=== PATIENT | male | born 1935 | race Caucasian/White ===

== ENCOUNTER → 2018-04-05 11:52 | Outpatient (CLI) | payer MEDICARE, SELFPAY ==
--- NOTE | 2018-04-05 | DI.CT.S_ITS ---
PROCEDURE: CT CHEST WO CON INDICATIONS: HEMOPTYSIS TECHNIQUE: Noncontrast 5 mm thick sections acquired from the pulmonary apices to the posterior costophrenic angles. 7 mm thick coronal and sagittal MIP reformats were then acquired. For radiation dose reduction, the following was used: automated exposure control, adjustment of mA and/or kV according to patient size. COMPARISON: [facility], CT, THORAX WITHOUT CONTRAST, 06/25/2017, 10:54. FINDINGS: Image quality: Excellent. Lungs and pleura: There is biapical scarring. Advanced centrilobular emphysema is seen. A large os disease involving posterior aspect of right lower lobe is again seen and unchanged. There is interstitial pulmonary fibrosis. Scarring/atelectasis in bilateral lung ramirez are again seen and are unchanged. Calcified granuloma is again noted in lateral aspect of left upper lobe. No discrete soft tissue density nodule mass is seen. No pleural effusions or pneumothorax. Central and peripheral airways are patent and normal in caliber. Mediastinum: Heart size is enlarged. No pericardial effusion. Borderline enlarged right paratracheal lymph node is seen. This is unchanged from prior study. Thoracic aorta is normal in size. Enlarged pulmonary artery is again seen suggestive of pulmonary hypertension. Esophagus is normal in caliber. There is a small hiatal hernia. Bones and chest wall: No suspicious bony lesions. No vertebral body compression fractures. No axillary or supraclavicular adenopathy by size criteria. Thyroid gland is within normal limits.. Abdomen: Previously described 1 cm hypodensity in left hepatic lobe is unchanged in size and appearance. IMPRESSION: 1. Severe centrilobular emphysema. Extensive bullous disease with chronic interstitial changes and pulmonary fibrosis unchanged from previous study. 2. Enlarged central pulmonary arteries, suggestive of pulmonary hypertension. 3. Nonspecific borderline enlarged mediastinal lymph node. 4. Stable subtle 1 cm hypodense area in left hepatic lobe and may represent benign process. Dictated by: Abhijeet Romero M.D. on 04/05/2018 at 14:45 Approved by: Abhijeet Romero M.D. on 04/05/2018 at 14:50
== END ==
PROVIDERS: Family Provider Internal Medicine; PCP Internal Medicine; Visit Provider Internal Medicine
DX: J43.2 Centrilobular emphysema (principal); R04.2 Hemoptysis
CPT/HCPCS: 71250

== ENCOUNTER → 2018-04-27 12:10 | Outpatient (CLI) | payer MEDICARE, SELFPAY ==
--- NOTE | 2018-04-27 | DI.ECHO.S_ITS ---
[place] [facility]---------+ [facility] +---------+ : : [address] [place] : : : : [id number] : : : : Phone: [phone]+ Echocardiogram Report + + :Name: RAMON PRABHAKAR Study Date: 04/27/2018 Height: 74 in : :[facility] Weight: 185 lb : : Gender: Male BSA: 2.1 m2 : :: 1935 Age: 82 yrs BP: 134/70 mmHg: :Reason For Study: COPD : :Ordering Physician: Victor M : :Rodolfo Performed By: Cynthia Hatfield : :Referring: PAIGE SILVA : + + Interpretation Summary The ejection fraction is estimated to be 60-65%. The right ventricle is mildly dilated. Right ventricular systolic function is mildly reduced. The left atrium is moderately dilated. There is mild mitral regurgitation. Compared to the prior echo study, there has been a decrease in the severity of mitral regurgitation. The aortic valve is moderately calcified. The calculated aortic valve area is 1.2 cm2. There is mild aortic regurgitation. There is trace tricuspid regurgitation. The right ventricular systolic pressure is estimated to be at least 56 mmHg based on an estimated right atrial pressure of 8 mm Hg. Compared to the prior echo exam, there has been an increase in the severity of pulmonary hypertension. Procedure: A two-dimensional transthoracic echocardiogram with color flow and Doppler was performed. The study quality was technically good. Comparison is made with the echocardiogram of 05-22-16. The heart rate ranged between 50- 61 bpm during the study. Left Ventricle: The left ventricle is normal in size, wall thickness, and systolic function without any focal wall motion abnormalities. The ejection fraction is estimated to be 60-65%. Left ventricular wall motion is normal. Diastolic parameters suggest a pseudonormalization pattern, consistent with probable elevated filling pressures. Right Ventricle: The right ventricle is mildly dilated. Right ventricular systolic function is mildly reduced. Atria: The left atrium is moderately dilated. Right atrial size is normal. The interatrial septum is intact with no evidence for an atrial septal defect. Mitral Valve: The mitral valve is grossly normal. There is mild mitral regurgitation. Compared to the prior echo study, there has been a decrease in the severity of mitral regurgitation. Aortic Valve: The aortic valve is trileaflet. Leaflet mobility is mild to moderately reduced. The aortic valve is moderately calcified. The calculated aortic valve area is 1.2 cm2. The peak aortic velocity is 2.5 m/sec. The peak aortic velocity on the previous exam was 1.9 m/sec. The aortic valve mean gradient is 11 mmHg. Severity ratio is 0.37. There is mild aortic regurgitation. Compared to the prior echo study, there has been a decrease in the severity of aortic regurgitation. Tricuspid Valve: The tricuspid valve is normal in structure and function. There is trace tricuspid regurgitation. The right ventricular systolic pressure is estimated to be at least 56 mmHg based on an estimated right atrial pressure of 8 mm Hg. Compared to the prior echo exam, there has been an increase in the severity of pulmonary hypertension. Pulmonic Valve: The pulmonic valve is not well seen, but is grossly normal. There is mild pulmonic regurgitation. Great Vessels: The aortic root is normal size. The ascending aorta is at the upper limits of normal in size. The IVC is of normal diameter and collapses less than 50% with a sniff. This suggests a right atrial pressure of 8 mm Hg. Pericardium/ Pleura There is no pericardial effusion. There is no pleural effusion. MMode/2D Measurements & Calculations LVIDd: 5.9 cm LVOT diam: 2.1 cm LVIDs: 3.4 cm Ao root diam: 3.4 cm FS: 42.5 % Aortic Jxn: 2.8 cm EPSS: 0.36 cm asc Aorta Diam: 3.6 cm IVSd: 0.87 cm Ao Arch Diam (Prox Trans): 3.4 cm LVPWd: 0.94 cm LV stevens. diameter/BSA (cm/m^2): 2.8 LV sys. diameter/BSA (cm/m^2): 1.6 LA dimension: 5.0 cm RA long axis: 5.8 cm LA A2 area: 28.2 cm2 RA area: 19.5 cm2 LA A4 area: 25.9 cm2 RA vol: 55.9 ml LA length (vol): 6.3 cm RA : 26.6 ml/m2 LA vol: 98.1 ml IVC diam: 2.1 cm LA vol index: 46.7 ml/m2 RVDd major: 6.2 cm RVD1 (basal): 5.0 cm RVD2 (mid): 4.0 cm Doppler Measurements & Calculations Ao V2 max: 249.9 cm/sec LVOT Max Tomás: 87.5 cm/sec Ao V2 mean: 147.7 cm/sec LV V1 max P.1 mmHg Ao max P.0 mmHg LV V1 VTI: 23.3 cm Ao mean P.9 mmHg SHANIA(I,D): 1.3 cm2 Ao V2 VTI: 63.9 cm SHANIA(V,D): 1.2 cm2 sev ratio: 0.37 SHANIA indexed to BSA (cm^2/m^2): 0.61 AI P1/2t: 604.2 msec AI dec slope: 201.7 cm/sec2 MV E max tomás: 99.7 cm/sec TR max tomás: 345.8 cm/sec MV A max tomás: 89.9 cm/sec TR max P.8 mmHg MV E/A: 1.1 PA V2 max: 97.1 cm/sec Med Peak E' Tomás: 5.8 cm/sec PA V2 mean: 58.6 cm/sec E/E' med: 17.2 PA mean P.7 mmHg Lat Peak E' Tomás: 7.1 cm/sec PA Accel Time: 0.15 sec E/E' lat: 14.1 E/e' average: 15.7 MV dec time: 0.26 sec MV P1/2t: 73.4 msec MV P1/2t max tomás: 99.3 cm/sec MVA(P1/2t): 3.0 cm2 Reading Physician:02:57 PM
== END ==
PROVIDERS: Family Provider Internal Medicine Critical Care Medicine; PCP Nurse Practitioner Family; Visit Provider Internal Medicine
DX: I08.0 Rheumatic disorders of both mitral and aortic valves (principal); J44.9 Chronic obstructive pulmonary disease, unspecified
CPT/HCPCS: 93306

== ENCOUNTER → 2018-05-06 10:54 | Outpatient (CLI) | payer MEDICARE, SELFPAY ==
--- NOTE | 2018-05-07 16:31 | PM.PFT.1 ---
Pulmonary Function Test Referral & Results Date Patient Seen: 05/06/18 Requesting provider: Rod Brown Indication: COPD Results: The spirometry demonstrates an FVC of 3.21 L which is 69% of predicted. The FEV1 was measured at 2.15 L which is 65% of predicted. The FEV1/FVC ratio was 67 which is 94% of predicted. No bronchodilator was administered No lung volumes were performed The diffusing capacity was measured at ER 0.45 which is 22% of predicted. No hemoglobin value was provided, so no correction for potential anemia could be made, if appropriate. The maximum voluntary ventilation was normal Interpretation: This study demonstrates moderate obstructive lung disease based on reduction FEV1. There is severe reduction in diffusing capacity (unless patient is anemic) to the point where patient is likely hypoxic at times on room air Compared to PFTs performed in June 2017, current study is essentially unchanged Clinical correlation suggested
== END ==
PROVIDERS: Family Provider Internal Medicine Critical Care Medicine; PCP Internal Medicine; Visit Provider Internal Medicine
DX: J44.9 Chronic obstructive pulmonary disease, unspecified (principal)
CPT/HCPCS: 94010; 94729

== ENCOUNTER 2018-12-03 23:51 | Emergency (ER) | payer MEDICARE, SELFPAY ==
[2018-12-03 23:55] VITALS: BP 127/65; PULSE 72; RESP 13; TEMP 36.6; O2SAT 94; BMI 23.7
--- NOTE | 2018-12-04 00:15 | ED_ITS ---
HPI - URI/Sore Throat General Chief Complaint: Upper Respiratory Symptoms Stated Complaint: Cough X1 Week Time Seen by Provider: 12/03/18 23:54 Source: patient Mode of arrival: EMS Limitations: no limitations History of Present Illness HPI Narrative: Patient is an 82-year-old male with a history of COPD and pulmonary fibrosis who is currently on oxygen at home. Is on 3 L during the day and 2 L at night. He is currently taking doxycycline prescribed by his primary provider for COPD exacerbation. He is also currently on 5 mg of prednisone on a daily basis. He stated that they did not increase this prednisone when they started the doxycycline. He is also on inhalers at home and does to DuoNeb 3 times a day. He stated that earlier this evening he was having coughing episodes that were hard to control. It was causing him to become short of breath. He also stated that during 1 of these coughing episodes he felt a a sharp pain in his left lower abdomen over site where he had a prior hernia repair. Since then he has had a bulge in this area and pain. Secondary to all of these constellation of symptoms he called 911 to bring him into the emergency department for evaluation. Related Data Home Medications Medication Instructions Recorded Confirmed amoxicillin-pot clavulanate 1 tab OR BID #0 05/22/16 [Augmentin] furosemide 20 mg OR Q DAY #0 05/22/16 potassium chloride [Klor-Con 8] 10 meq OR Q DAY #0 05/22/16 tamsulosin [Flomax] 0.8 mg OR HS #0 05/22/16 Previous Rx's Medication Instructions Recorded albuterol sulfate 3 ml INH Q4HP PRN #30 amp 05/26/16 prednisone 40 mg PO QDAY #20 tab 05/26/16 azithromycin [Zithromax] 250 mg PO SEE INSTRUCTIONS #6 tab 06/09/16 albuterol sulfate 2.5 mg INHALATION Q4-6H PRN #30 12/04/18 each prednisone 40 mg PO DAILY #20 tab 12/04/18 Review of Systems Constitutional Denies fever(s) and Denies headache(s) ENT Ears, Nose, Mouth, and Throat: Denies headache(s) Cardiovascular Denies chest pain and Reports dyspnea Respiratory Reports cough, Reports pain with cough, Reports dyspnea and Reports wheezing Gastrointestinal Gastrointestinal: Reports abdominal pain and Denies change in stool character Comments: Fall to left lower abdomen Musculoskeletal Denies abnormal gait Integumentary/Breasts Denies rash Neurologic Denies abnormal gait, Denies confusion and Denies headache(s) Psychiatric Denies confusion Hematologic/Lymphatic Denies easy bleeding and Denies easy bruising Allergic/Immunologic Reports wheezing [facility] Medical History COPD (chronic obstructive pulmonary disease) (Acute) Pulmonary fibrosis (Acute) Social History marital status: lives independently: Yes Social History marital status: lives independently: Yes Exam Initial Vital Signs Initial Vital Signs: Vital Signs Temperature 97.9 F 12/03/18 23:55 Pulse Rate 72 12/03/18 23:55 Respiratory Rate 13 12/03/18 23:55 Blood Pressure 127/65 12/03/18 23:55 Pulse Oximetry 94 12/03/18 23:55 Const General: cooperative, well groomed and No acute distress Orientation: alert, awake and oriented x3 HENMT Head: normal to inspection and normocephalic Resp Effort & Inspection: not labored and tachypneic Auscultation: wheezes Cardio Rate: regular rate Rhythm: regular rhythm GI Palpation: soft Other: Patient with a bulge in his left lower abdomen over the site of maximum pain. Skin Lesions: no lesions Rashes: no rashes Neuro General: alert, awake and oriented x3 Cognition: normal cognition Speech: speech normal Extrem General: normal to inspection and capillary refill normal Psych Appearance: grossly normal and well kempt Course Orders Ordered: Discontinued Medications Albuterol (Ventolin) 5 mg INH NOW ONE Stop: 12/04/18 00:16 Last Admin: 12/04/18 00:26 Dose: 5 mg Prednisone (Deltasone) 40 mg PO NOW ONE Stop: 12/04/18 01:11 Last Admin: 12/04/18 01:27 Dose: 40 mg Vital Signs - 8 hr 12/03/18 23:55 12/04/18 00:26 Temperature 97.9 F Pulse Rate 72 60 Respiratory Rate 13 18 Blood Pressure 127/65 Pulse Oximetry 94 95 MDM - URI/Sore Throat MDM Narrative Medical decision making narrative: Patient with wheezing upon arrival. He was given a nebulizer treatment which did seem to improve his symptoms somewhat however did not resolve the wheezing. Patient states that he felt better after this. Will hold on a chest x-ray because he is currently taking doxycycline for his COPD exacerbation. He is at his baseline oxygen requirement. We did discuss increasing his prednisone at home to help with the coughing and the wheezing. Patient does have what appears to be a abdominal hernia which was reduced fairly easily with just gentle pressure here in the ER. He did protrude again after coughing however again was reduced. Patient was given follow up instructions with General surgery to discuss further evaluation of his hernia. Will not make any changes to his antibiotics. Patient was given return precautions and follow-up instructions. He expressed understanding and agreement with plan. Discharge Plan Departure Patient Disposition: Home Clinical Impression: COPD exacerbation Abdominal hernia Qualifiers: Hernia type: unspecified Obstruction and gangrene presence: without obstruction or gangrene Recurrence: recurrent Qualified Code(s): K45.8 - Other specified abdominal hernia without obstruction or gangrene Instructions: Chronic Obstructive Pulmonary Disease, Abdominal Hernia Activity Restrictions/Additional Instructions: Continue all of your medications as directed. Take the prednisone like we discussed. Continue with the antibiotics. On Thursday contact the [place] [facility] group at . Return to the emergency department for any new or worsening symptoms. Prescriptions: New prednisone 20 mg tablet 40 mg PO DAILY Qty: 20 RF: 0 albuterol sulfate 2.5 mg/0.5 mL solution for nebulization 2.5 mg INHALATION Q4-6H PRN (Reason: shortness of breath or wheezing) Qty: 30 RF: 0 No Action tamsulosin [Flomax] 0.4 MG capsule,extended release 24hr 0.8 mg OR HS Qty: 0 RF: 0 potassium chloride [Klor-Con 8] 8 MEQ tablet extended release 10 meq OR Q DAY Qty: 0 RF: 0 furosemide 20 MG tablet 20 mg OR Q DAY Qty: 0 RF: 0 amoxicillin-pot clavulanate [Augmentin] 875 MG/125 MG tablet 1 tab OR BID Qty: 0 RF: 0 albuterol sulfate 2.5 MG/3 ML solution for nebulization 3 ml INH Q4HP PRNQty: 30 RF: 1 prednisone 10 MG tablet 40 mg PO QDAY Qty: 20 RF: 0 azithromycin [Zithromax] 250 MG tablet 250 mg PO SEE INSTRUCTIONS Qty: 6 RF: 0 Referrals: Victor M Reynolds MD [Primary Care Provider] -
[2018-12-04 00:26] VITALS: PULSE 60; RESP 18; O2SAT 95
[2018-12-04] MEDS: ALBUTEROL 2.5 MG/3 ML NEB (ADULT) 5 MG INH (00:26)
[2018-12-04] MEDS: predniSONE 20 MG TABLET 40 MG PO (01:27)
[2018-12-04 08:42] VITALS: BP 116/59; PULSE 85; RESP 20; O2SAT 94
== END 2018-12-04 08:43 | disposition home or self-care (01) ==
PROVIDERS: Emergency Provider Emergency Medicine; Family Provider Internal Medicine Critical Care Medicine; PCP Internal Medicine
DX: J44.1 Chronic obstructive pulmonary disease with (acute) exacerbation (principal); K45.8 Other specified abdominal hernia without obstruction or gangrene
CPT/HCPCS: 94640; 99282; 99283; J7613

== ENCOUNTER 2018-12-10 16:11 | Emergency (ER) | payer MEDICARE, SELFPAY ==
[2018-12-10 16:19] VITALS: BP 126/59; PULSE 72; RESP 23; TEMP 36.6; O2SAT 98
--- NOTE | 2018-12-10 16:21 | DI.US.S_ITS ---
PROCEDURE: US PERIPH VENOUS UP EXTREM LT INDICATIONS: PAIN, SWELLING LEFT ARM TECHNIQUE: Real-time imaging, as well as color and pulse Doppler interrogation, was performed of the left upper extremity deep veins from the inferior neck to the antecubital fossa. COMPARISON: None. FINDINGS: The internal jugular vein, visualized portions of the subclavian vein, axillary, and brachial veins are free of intraluminal thrombus. Where physically possible, the veins are normally compressible. Color and pulse Doppler demonstrate normal intraluminal flow, with expected phasicity and pulsatility. Additional scanning of the cephalic and basilic veins of the superficial system demonstrate normal compressibility, without thrombus. There is enlargement of a superficial vein in the left hand and forearm, consistent with superficial thrombophlebitis. IMPRESSION: 1. No DVT in the left upper extremity. 2. Superficial thrombophlebitis of the left hand and forearm. Dictated by: Genesis Aldrich M.D. on 12/10/2018 at 18:09 Approved by: Genesis Aldrich M.D. on 12/10/2018 at 18:11
--- NOTE | 2018-12-10 16:24 | ED.EXTPRO ---
HPI - Extremity Problem <PETER Charles - Last Filed: 12/10/18 18:47> General Chief complaint: Extremity Problem,Nontraumatic Stated complaint: STATES VEIN LEFT FORARMIS SWELLING Time Seen by Provider: 12/10/18 16:13 Source: patient and family Mode of arrival: ambulatory Limitations: no limitations History of Present Illness HPI Narrative: The patient is an 82-year-old male nonsmoker presents with his for chief complaint of left forearm pain. He states this facility recently and had an IV in, and now complains of redness and swelling extending from the IV site up to his arm. He states that the pain feels hard. He denies any abnormal chest pain, abnormal shortness of breath nausea vomiting diarrhea or fever. He has not taken anything or applied anything to it. He is not sure what medications he had in his IV other than fluids. Patient states he has coughing still since his last visit. States he has a PCP appointment tomorrow Related Data Home Medications Medication Instructions Recorded Confirmed amoxicillin-pot clavulanate 1 tab OR BID #0 05/22/16 [Augmentin] furosemide 20 mg OR Q DAY #0 05/22/16 potassium chloride [Klor-Con 8] 10 meq OR Q DAY #0 05/22/16 tamsulosin [Flomax] 0.8 mg OR HS #0 05/22/16 Previous Rx's Medication Instructions Recorded albuterol sulfate 3 ml INH Q4HP PRN #30 amp 05/26/16 prednisone 40 mg PO QDAY #20 tab 05/26/16 azithromycin [Zithromax] 250 mg PO SEE INSTRUCTIONS #6 tab 06/09/16 albuterol sulfate 2.5 mg INHALATION Q4-6H PRN #30 12/04/18 each prednisone 40 mg PO DAILY #20 tab 12/04/18 Review of Systems <PETER Charles - Last Filed: 12/10/18 18:47> Review of Systems GENERAL: Denies chills, fatigue, malaise, fever, sweats. HEENT: Denies sinus pain, ear pain, sore throat, difficulty swallowing, dizziness. RESPIRATORY: See HPI CARDIOVASCULAR: Denies chest pain, palpitations, orthopnea, edema, GASTROINTESTINAL: Denies nausea, vomiting, abdominal pain, diarrhea, constipation, melena. : Denies dysuria, frequency, incontinence, hematuria, urinary retention. MUSCULOSKELETAL: denies weakness, joint pain, or bony pain SKIN: See HPI NEUROLOGIC: Denies weakness, headache, numbness, change in speech, confusion, seizures, incoordination. PSYCHIATRIC: No concerning psychosocial issues. 12 point review of systems is negative except for those stated above PFSH <PETER Charles - Last Filed: 12/10/18 18:47> Medical History COPD (chronic obstructive pulmonary disease) (Acute) Pulmonary fibrosis (Acute) Social History marital status: lives independently: Yes Smoking Status: Never smoker Social History marital status: lives independently: Yes Smoking Status: Never smoker Exam <PETER Charles - Last Filed: 12/10/18 18:47> Narrative Exam Narrative: GENERAL: Chronically ill-appearing male on home O2 HEAD: Atraumatic. Normocephalic. No temporal or scalp tenderness. EYES: Pupils equal round and reactive. Extraocular motions intact. No scleral icterus. No injection or drainage. ENT: Nose without bleeding, purulent drainage or septal hematoma. Throat without erythema, tonsillar hypertrophy or exudate. Uvula midline. Airway patent. NECK: Trachea midline. No JVD or lymphadenopathy. Supple, nontender, no meningeal signs. CARDIOVASCULAR: Regular rate and rhythm RESPIRATORY: Coarse bilaterally. no accessory muscle use. No stridor. Cough on exam on occasion. EXTREMITIES: Positive radial pulse left hand. Left arm is soft to palpation. BACK: Nontender without deformity or crepitance. No flank tenderness. NEURO: AOx3. SKIN: Noted to have single, swollen tender superficial vein to left hand and longterm up forearm Initial Vital Signs Initial Vital Signs: Vital Signs Temperature 97.9 F 12/10/18 16:19 Pulse Rate 72 12/10/18 16:19 Respiratory Rate 23 12/10/18 16:19 Blood Pressure 126/59 L 12/10/18 16:19 Pulse Oximetry 98 12/10/18 16:19 <Kiran Villareal DO - Last Filed: 12/11/18 08:17> Initial Vital Signs Initial Vital Signs: Vital Signs Temperature 97.9 F 12/10/18 16:19 Pulse Rate 72 12/10/18 16:19 Respiratory Rate 23 12/10/18 16:19 Blood Pressure 126/59 L 12/10/18 16:19 Pulse Oximetry 98 12/10/18 16:19 Course <PETER Charles - Last Filed: 12/10/18 18:47> Orders Ordered: ED Orders 12/10/18 16:21 US periph venous up extrem lt Stat Vital Signs - 8 hr 12/10/18 16:19 12/10/18 16:53 Temperature 97.9 F Pulse Rate 72 54 L Respiratory Rate 23 17 Blood Pressure 126/59 L Pulse Oximetry 98 98 <Kiran Villareal DO - Last Filed: 12/11/18 08:17> Orders Ordered: ED Orders 12/10/18 16:21 US periph venous up extrem lt Stat Vital Signs - 8 hr 12/10/18 16:19 12/10/18 16:53 Temperature 97.9 F Pulse Rate 72 54 L Respiratory Rate 23 17 Blood Pressure 126/59 L Pulse Oximetry 98 98 MDM - Extremity (Nontraumatic) <PETER Charles - Last Filed: 12/10/18 18:47> Imaging Data Venous US: Radiologist's impression: [place] [address] Ultrasound Report Signed Patient: Lon HathawayMR#: [id number] : 6Acct:[id number] Age/Sex: 82 / MDate of Service: 12/10/18 Loc: ED Accession Number: [id number] Procedure: US periph venous up extrem lt Ordering Provider: Tonja Suárez PROCEDURE: US PERIPH VENOUS UP EXTREM LT INDICATIONS: PAIN, SWELLING LEFT ARM TECHNIQUE: Real-time imaging, as well as color and pulse Doppler interrogation, was performed of the left upper extremity deep veins from the inferior neck to the antecubital fossa. COMPARISON: None. FINDINGS: The internal jugular vein, visualized portions of the subclavian vein, axillary, and brachial veins are free of intraluminal thrombus. Where physically possible, the veins are normally compressible. Color and pulse Doppler demonstrate normal intraluminal flow, with expected phasicity and pulsatility. Additional scanning of the cephalic and basilic veins of the superficial system demonstrate normal compressibility, without thrombus. There is enlargement of a superficial vein in the left hand and forearm, consistent with superficial thrombophlebitis. IMPRESSION: 1. No DVT in the left upper extremity. 2. Superficial thrombophlebitis of the left hand and forearm. Dictated by: Genesis Aldrich M.D. on 12/10/2018 at 18:09 Approved by: Genesis Aldrich M.D. on 12/10/2018 at 18:11 [facility] Narrative Medical decision making narrative: The patient is an 82-year-old male who presents with chief complaint of a red swollen past fall after an IV was removed last week. Ultrasound shows a superficial thrombophlebitis. No DVT. He is neurovascularly intact. Discussed at length use of warm packs and [id number] pain medications as needed and able. Encouraged follow-up with primary care provider. Patient has follow-up scheduled tomorrow anyway. Discussed coming back to the emergency department for any acute concerns such as chest pain, shortness of breath etc. No questions or concerns upon discharge. Discharge Plan Departure Patient Disposition: Home Clinical Impression: Superficial thrombophlebitis Qualifiers: Superficial thrombophlebitis-Involved body area: upper extremity Laterality: left Qualified Code(s): I80.8 - Phlebitis and thrombophlebitis of other sites Discharge Date/Time: 12/10/18 19:07 Interventions: ED Discharge Assessment Last Done: 12/10/18 19:06 Instructions: DI for Superficial Thrombophlebitis Activity Restrictions/Additional Instructions: Your ultrasound came back negative for a deep clot. However it is concerning for a superficial clot. This is usually treated with hot packs and qjxa-rje-roqpyjb pain medications.. Please follow up with primary care provider tomorrow as scheduled. Please come back to emergency department for any acute concerns such as chest pain, shortness of breath fever etc Prescriptions: No Action tamsulosin [Flomax] 0.4 MG capsule,extended release 24hr 0.8 mg OR HS Qty: 0 RF: 0 potassium chloride [Klor-Con 8] 8 MEQ tablet extended release 10 meq OR Q DAY Qty: 0 RF: 0 furosemide 20 MG tablet 20 mg OR Q DAY Qty: 0 RF: 0 amoxicillin-pot clavulanate [Augmentin] 875 MG/125 MG tablet 1 tab OR BID Qty: 0 RF: 0 albuterol sulfate 2.5 MG/3 ML solution for nebulization 3 ml INH Q4HP PRNQty: 30 RF: 1 prednisone 10 MG tablet 40 mg PO QDAY Qty: 20 RF: 0 azithromycin [Zithromax] 250 MG tablet 250 mg PO SEE INSTRUCTIONS Qty: 6 RF: 0 prednisone 20 mg tablet 40 mg PO DAILY Qty: 20 RF: 0 albuterol sulfate 2.5 mg/0.5 mL solution for nebulization 2.5 mg INHALATION Q4-6H PRN (Reason: shortness of breath or wheezing) Qty: 30 RF: 0 Referrals: Victor M Reynolds MD [Primary Care Provider] - <Kiran Villareal DO - Last Filed: 12/11/18 08:17> Cosign ED Attending Jluis Attestation: I was immediately available in the department for consultation. Documentation has been reviewed. I agree with assessment and plan.
[2018-12-10 16:53] VITALS: PULSE 54; RESP 17; O2SAT 98
--- NOTE | 2018-12-10 16:54 | PC.NURSE ---
Patient normally on 3L NC O2 at home.
--- NOTE | 2018-12-10 16:59 | PC.NURSE ---
Patient has swollen, red, tender superficial veins to left hand and forearm after IV last week.
--- NOTE | 2018-12-10 17:00 | PC.NURSE ---
History or COPD and CHF.
[2018-12-10 18:46] VITALS: BP 138/69; PULSE 61; RESP 16; O2SAT 95
== END 2018-12-10 19:07 | disposition home or self-care (01) ==
PROVIDERS: Emergency Provider Nurse Practitioner Family; Family Provider Internal Medicine Critical Care Medicine; PCP Internal Medicine
DX: I80.8 Phlebitis and thrombophlebitis of other sites (principal)
CPT/HCPCS: 36591; 93971; 99282; 99283

== ENCOUNTER → 2019-10-25 11:09 | Outpatient (CLI) | payer MEDICARE, SELFPAY ==
--- NOTE | 2019-10-25 | DI.CT.S_ITS ---
PROCEDURE: CT CHEST WO CON INDICATIONS: Chronic obstructive pulmonary disease, unspecified TECHNIQUE: Noncontrast 5 mm thick sections acquired from the pulmonary apices to the posterior costophrenic angles. 1 mm lung window, 5 mm thick coronal and sagittal and 7 mm axial MIP reformats were then acquired. For radiation dose reduction, the following was used: automated exposure control, adjustment of mA and/or kV according to patient size. COMPARISON: [facility], CT, CT CHEST WO CON, 04/05/2018, 12:00. FINDINGS: Image quality: Excellent. Lungs and pleura: There are severe paraseptal and moderate centrilobular emphysematous changes redemonstrated. These include multiple bilateral bulla measuring up to 12.2 x 7.7 x 14.1 cm in the right lung base exteriorly. This appears slightly increased compared to the prior study on which it measured approximately 12.2 x 7.2 x 13.1 cm. Bilateral subpleural reticular opacities, honeycombing, and traction bronchiectasis also demonstrated with a basilar predominance. The findings are consistent with a UIP pattern of chronic interstitial lung disease and appear slightly increased compared to the prior study. No acute consolidation or new suspicious masses lesions. There is a focus of calcification in the left upper lobe consistent with old granulomatous disease. No pleural effusions or pneumothorax. Central and peripheral airways are patent and normal in caliber. Mediastinum: Heart size is normal. There is a minimal pericardial effusion. Coronary arteriovascular calcifications demonstrated. Enlargement of the pulmonary arteries redemonstrated, with the main pulmonary artery measuring up to 4.3 cm compatible with sequela of pulmonary arterial hypertension. The aorta is normal in caliber. No mediastinal adenopathy by size criteria. Esophagus is normal in caliber. There is a small hiatal hernia. Bones and chest wall: No suspicious bony lesions. No vertebral body compression fractures. No axillary or supraclavicular adenopathy by size criteria. Abdomen: Visualized upper abdomen redemonstrates a small hypodensity in the left hepatic lobe measuring up to 1.1 cm which is too small to characterize but appears unchanged from prior study and represents a cyst. Small foci of calcifications are demonstrated within the liver and spleen consistent with sequela of old granulomatous disease. IMPRESSION: 1. Severe paraseptal and moderate centrilobular emphysematous changes redemonstrated, slightly increased from the prior study. 2. UIP pattern of chronic interstitial lung disease also slightly increased from the prior study. The differential of possible etiologies is broad and correlation is recommended with clinical history. 3. Enlargement of the pulmonary arteries redemonstrated compatible with sequelae of chronic pulmonary arterial hypertension. Dictated by: Masood Jerez M.D. on 10/25/2019 at 13:25 Approved by: Masood Jerez M.D. on 10/25/2019 at 13:35
== END ==
PROVIDERS: Family Provider Internal Medicine Critical Care Medicine; PCP Internal Medicine; Referring Provider Internal Medicine; Visit Provider Internal Medicine
DX: J44.9 Chronic obstructive pulmonary disease, unspecified (principal); J84.9 Interstitial pulmonary disease, unspecified; K44.9 Diaphragmatic hernia without obstruction or gangrene; I77.89 Other specified disorders of arteries and arterioles
CPT/HCPCS: 71250

== ENCOUNTER 2020-03-24 15:14 | Emergency (ER) | payer MEDICARE, SELFPAY ==
[2020-03-24] VITALS (17 sets, daily range): BP systolic 120–154; BP diastolic 58–81; PULSE 53–65; RESP 15; TEMP 36.4; O2SAT 81–94
--- NOTE | 2020-03-24 15:38 | DI.CT.S_ITS ---
PROCEDURE: CT CERVICAL SPINE WO CON INDICATIONS: glf hit head, neck pain TECHNIQUE: Noncontrast 3 mm thick sections acquired from the skull base to the T4 level. Sagittal and coronal reformats were then constructed. For radiation dose reduction, the following was used: automated exposure control, adjustment of mA and/or kV according to patient size. COMPARISON: [facility], CT, CT HEAD/BRAIN WO CON, 03/24/2020, 15:43. [facility], CT, THORAX WITHOUT CONTRAST, 11/08/2015, 14:08. FINDINGS: Image quality: Diagnostic, with note made of motion artifact. Bones: No fractures or dislocations. Visualized superior ribs are intact. Degenerative changes are seen, with moderate to severe disc space narrowing at C4-C5 and C5-C6. At least moderate disc space narrowing is seen at C6-C7. At least partially bridging anterior osteophytes are seen C3 through T1. Postop directed endplate osteophytes are seen, which are most prominent at C4-C5 and at C5-C6. Focal degenerative changes are also seen involving the C1-C2 interface anteriorly. Soft tissues: Prevertebral soft tissues are normal in thickness. No paravertebral hematomas. No apical pneumothoraces. Emphysematous changes are seen at the lung apices. Atherosclerotic calcification is noted. IMPRESSION: No acute fracture is seen. Degenerative changes are seen, which are worst at the C4-C5 and C5-C6 levels. Emphysema. Dictated by: Mariusz Rebolledo M.D. on 03/24/2020 at 15:11 Approved by: Mariusz Rebolledo M.D. on 03/24/2020 at 15:13
--- NOTE | 2020-03-24 15:38 | DI.CT.S_ITS ---
PROCEDURE: CT HEAD/BRAIN WO CON INDICATIONS: glf hit head TECHNIQUE: Noncontrast 4.5 mm thick angled axial sections acquired from the foramen magnum to the vertex, with coronal and sagittal reformats. For radiation dose reduction, the following was used: automated exposure control, adjustment of mA and/or kV according to patient size. COMPARISON: [facility], CT, CT CERVICAL SPINE WO CON, 03/24/2020, 15:43. [facility], CT, HEAD WITHOUT CONTRAST, 05/30/2013, 9:15. FINDINGS: Image quality: Excellent. CSF spaces: Basal cisterns are patent. No extra-axial fluid collections. The ventricles are symmetric in size and shape. Brain: No intracranial bleeds or masses. There is cerebral volume loss for age, with resultant ventricular and sulcal prominence. There are periventricular and deep white matter chronic small vessel ischemic changes. There is intracranial internal carotid artery atherosclerosis. Skull and face: Calvarium and visualized facial bones appear intact, without suspicious lesions. Sinuses: Visualized sinuses and mastoids are clear. IMPRESSION: No acute intracranial hemorrhage is seen. Relatively prominent brain parenchymal volume loss is again seen. Dictated by: Mariusz Rebolledo M.D. on 03/24/2020 at 15:10 Approved by: Mariusz Rebolledo M.D. on 03/24/2020 at 15:11
--- NOTE | 2020-03-24 15:38 | DI.RAD.S_ITS ---
PROCEDURE: XR ELBOW RT MIN 3V INDICATIONS: Ground level fall, pain, wound TECHNIQUE: 3 views of the elbow were acquired. COMPARISON: None. FINDINGS: Bones: Rotated exam which limits evaluation. No evidence of fracture. No fractures or dislocations. No suspicious bony lesions. Soft tissues: No elbow joint effusion. No suspicious soft tissue calcifications. IMPRESSION: No definite evidence of fracture. Limited exam due to poor positioning. Dictated by: Kilo Arroyo M.D. on 03/24/2020 at 16:10 Approved by: Kilo Arroyo M.D. on 03/24/2020 at 16:11
[2020-03-24 15:55] LABS: Add Manual Diff / Slide Review NO; Basophils Absolute Auto 100 /uL (0-100); Basophils Percent Auto 0.9 % (0-2); Eosinophils Absolute Auto 0 /uL (0-450); Eosinophils Percent Auto 0.6 % (2-4); Hematocrit 45.5 % (41-53); Hemoglobin 15.1 g/dL (13.5-17.5); Lymphocytes Absolute Auto 1000 /uL (1100-4500); Lymphocytes Percent Auto 13.2 % (25-40); Mean Corpuscular HGB Conc 33.1 % (30-36); Mean Corpuscular Hemoglobin 32.4 PG (26-34); Mean Corpuscular Volume 97.7 fL (80-100); Monocytes Absolute Auto 200 /uL (0-900); Monocytes Percent Auto 2.8 % (3-14); Neutrophils Absolute Auto 6200 /uL (1500-7000); Neutrophils Percent Auto 82.5 % (50-75); Platelet Count 260 X10^3/uL (150-400); Red Blood Cell Count 4.66 X10^6/uL (4.5-5.9); Red Cell Distribution Width 14.7 % (11.6-14.8); White Blood Cell Count 7.5 X10^3/uL (4.5-11.0)
[2020-03-24 16:11] LABS: PTT Partial Thromboplastin Tim 28 SECONDS (26.4-36.2)
[2020-03-24 16:12] LABS: Lactate (Lactic Acid) 3.3 mmol/L (0.7-2.1)
[2020-03-24 16:13] LABS: Alanine Aminotransferase 13 IU/L (<50); Albumin Globulin Ratio 1.3 (1.0-2.8); Alkaline Phosphatase 40 U/L (38-126); Aspartate Aminotransferase 31 IU/L (17-59); BUN Creatinine Ratio 22.8 (6-22); Bilirubin Total 0.4 mg/dL (0.2-1.3); Blood Urea Nitrogen 26 mg/dL (9-20); Calcium 9.2 mg/dL (8.4-10.2); Carbon Dioxide 23 mmol/L (22-32); Chloride 108 mmol/L (98-107); Estimated Glomerular Filt Rate > 60.0 mL/min (>60); Globulin 3.2 g/dL (1.7-4.1); Glucose 84 mg/dL (80-110); HEMOLYSIS 16 (0-50); Sodium 141 mmol/L (137-145); Total Protein 7.2 g/dL (6.3-8.2)
[2020-03-24 16:27] LABS: Creatine Kinase 266 U/L (55-170)
[2020-03-24 16:28] LABS: Procalcitonin < 0.05 ng/mL (<0.5)
[2020-03-24] MEDS: SODIUM CHLORIDE 0.9% 1,000 ML 1000 ML IV ×2 (16:28→17:47)
--- NOTE | 2020-03-24 16:31 | DI.RAD.S_ITS ---
PROCEDURE: XR CHEST 1V INDICATIONS: copd, shortness of breath TECHNIQUE: One view of the chest was acquired. COMPARISON: [facility], CT, CT CHEST WO CON, 10/25/2019, 11:09. [facility], CR, CHEST 1 VIEW, 05/22/2016, 11:36. [facility], CR, CHEST 2 VIEW, 09/04/2016, 14:11. FINDINGS: Surgical changes and devices: None. Lungs and pleura: The lungs are hyperexpanded. Diffuse interstitial prominence is seen. Blunting of the costophrenic angles can be seen. Mediastinum: Obscured. Bones and chest wall: Age-appropriate bony degenerative changes are seen. No suspicious bony lesions. Overlying soft tissues appear unremarkable. IMPRESSION: Diffuse interstitial prominence is seen. A small amount of pulmonary edema is suspected upon a baseline of underlying pulmonary fibrosis. Blunting of the costophrenic angles is seen, which is attributed to scarring, although differential diagnosis includes small pleural effusions. Dictated by: Mariusz Rebolledo M.D. on 03/24/2020 at 16:18 Approved by: Mariusz Rebolledo M.D. on 03/24/2020 at 16:19
[2020-03-24 16:41] LABS: NT-proBNP (BNP-Adult 18+) 405 pg/mL (<450); Troponin I < 0.012 ng/mL (0.01-0.034)
[2020-03-24 16:43] LABS: CKMB % Relative Index 0.9 % (1.5-5.0); Creatine Kinase MB 2.36 ng/mL (<2.37)
[2020-03-24] MEDS: TET,DIPH,PERTUSS(ACELL),VAC/PF 0.5 ML SYRINGE IM (17:04)
[2020-03-24 17:51] LABS: Reflexed Lactate in 2 Hours Y
[2020-03-24 18:33] LABS: Lactate 2HR (Lactic Acid Rflx) 2.3 mmol/L (0.7-2.1)
--- NOTE | 2020-03-24 19:11 | ED.FALL ---
HPI - Fall <Tonja Suárez HISTORY CARD CLERK-BC - Last Filed: 03/24/20 21:47> General Chief Complaint: Fall Stated Complaint: Fall, right arm skin tear Time Seen by Provider: 03/24/20 15:26 Source: patient and family Mode of arrival: Ambulatory Limitations: no limitations History of Present Illness HPI Narrative: The patient is an 84-year-old male nonsmoker with history of COPD and acute respiratory failure with hypoxia on home oxygen who presents with a chief complaint of a fall and injury to his right arm. He is oxygen dependent at home, using 2-3 L of nasal cannula oxygen at all times. Today he was ambulating and working in the garden, and he did not realize that his oxygen tank ran out. He states he does not know how long his oxygen tank was empty. He then feels very woozy and had a fall to the floor. He states that he has a skin tear to his right arm. He denies any pain. He admits to hitting his head, states that his neck pain is at baseline. He denies any chest pain or abnormal shortness of breath. He denies any fevers nausea vomiting or diarrhea. He denies any abdominal pain. His notes that he has been feeling ?a little off the past few days. He denies any dysuria urgency or frequency. After he fell, his heard him and found his oxygen take empty. Given that patient fell and hit his head over the age of 65, modified trauma activated upon arrival Related Data Home Medications Medication Instructions Recorded Confirmed amoxicillin-pot clavulanate 1 tab OR BID #0 05/22/16 [Augmentin] furosemide 20 mg OR Q DAY #0 05/22/16 potassium chloride [Klor-Con 8] 10 meq OR Q DAY #0 05/22/16 tamsulosin [Flomax] 0.8 mg OR HS #0 05/22/16 Previous Rx's Medication Instructions Recorded albuterol sulfate 3 ml INH Q4HP PRN #30 amp 05/26/16 prednisone 40 mg PO QDAY #20 tab 05/26/16 azithromycin [Zithromax] 250 mg PO SEE INSTRUCTIONS #6 tab 06/09/16 albuterol sulfate 2.5 mg INHALATION Q4-6H PRN #30 12/04/18 each prednisone 40 mg PO DAILY #20 tab 12/04/18 Allergies Allergy/AdvReac Type Severity Reaction Status Date / Time No Known Drug Allergies Allergy Verified 03/24/20 15:26 Review of Systems <PETER Charles - Last Filed: 03/24/20 21:47> Review of Systems Narrative: GENERAL: Denies chills, fatigue, malaise, fever, sweats. HEENT: Denies sinus pain, ear pain, sore throat, difficulty swallowing, dizziness. RESPIRATORY: See HPI CARDIOVASCULAR: Denies chest pain, palpitations, orthopnea, edema, GASTROINTESTINAL: Denies nausea, vomiting, abdominal pain, diarrhea, constipation, melena. : Denies dysuria, frequency, incontinence, hematuria, urinary retention. MUSCULOSKELETAL: denies weakness, joint pain, or bony pain SKIN: See HPI NEUROLOGIC: Denies weakness, headache, numbness, change in speech, confusion, seizures, incoordination. PSYCHIATRIC: No concerning psychosocial issues. 12 point review of systems is negative except for those stated above Patient History <PETER Charles - Last Filed: 03/24/20 21:47> Medical History (Updated 03/24/20 @ 20:40 by PETER Charles) COPD (chronic obstructive pulmonary disease) (Acute) Pulmonary fibrosis (Acute) Social History marital status: lives independently: Yes Smoking Status: Never smoker Smoking Status: Never smoker alcohol intake frequency: 3 or more drinks per day Substance Use Type: does not use Exam <PETER Charles - Last Filed: 03/24/20 21:47> Narrative Exam Narrative: GENERAL: Elderly male with oxygen in place and ready cheeks HEAD: Atraumatic. Normocephalic. No temporal or scalp tenderness. EYES: Pupils equal round and reactive. Extraocular motions intact. No scleral icterus. No injection or drainage. ENT: Nose without bleeding, purulent drainage or septal hematoma. Throat without erythema, tonsillar hypertrophy or exudate. Uvula midline. Airway patent. NECK: Trachea midline. No JVD or lymphadenopathy. Supple, nontender, no meningeal signs. CARDIOVASCULAR: Regular rate and rhythm RESPIRATORY: Coarse to auscultation. Breath sounds equal bilaterally. No wheezes, rales, or rhonchi. No increased respiratory effort. Speaking full sentences. Occasional cough on exam. GASTROINTESTINAL: Abdomen soft, non-tender, nondistended. No hepato-splenomegaly, or palpable masses. No guarding. EXTREMITIES: No clubbing, cyanosis, or edema. No joint tenderness, effusion, or edema noted. BACK: Nontender without deformity or crepitance. No flank tenderness. NEURO: AOx3. SKIN: 4 cm laceration noted to olecranon of right elbow. Initial Vital Signs Initial Vital Signs: Vital Signs Temperature 97.6 F 03/24/20 15:20 Pulse Rate 60 03/24/20 15:20 Respiratory Rate 15 03/24/20 15:20 Blood Pressure 120/58 L 03/24/20 15:20 Pulse Oximetry 90 L 03/24/20 15:20 <Rusty Samayoa MD - Last Filed: 03/25/20 02:01> Initial Vital Signs Initial Vital Signs: Vital Signs Temperature 97.6 F 03/24/20 15:20 Pulse Rate 60 03/24/20 15:20 Respiratory Rate 15 03/24/20 15:20 Blood Pressure 120/58 L 03/24/20 15:20 Pulse Oximetry 90 L 03/24/20 15:20 Procedures <PETER Charles - Last Filed: 03/24/20 21:47> Laceration Repair Laceration 1: Site: upper extremity Side (If applicable): right Size (cm): 4 Description: linear Depth: simple, single layer Local Anesthetic: lidocaine 1% and with bicarb Amount of anesthesia used (mL): 6 Pre-repair: wound explored, irrigated extensively and deep structures intact (Flushed with saline, cleansed with Hibiclens and iodine) Skin layer closed with: nylon Size (cm): 5-0 Number of sutures: 7 Technique: simple, interrupted Scores <PETER Charles - Last Filed: 03/24/20 21:47> GCS [place] coma scale eye opening: Spontaneous [place] coma scale verbal response: Orientated Faith coma scale motor response: Obey commands [place] coma scale total score: 15 NIH Stroke Scale Level of Conciousness: Alert, keenly responsive Ask month/age: Answers both questions correctly. Open/close eyes, close hand: Performs both tasks correctly Best gaze horizontal: Normal Visual ramirez: No visual loss Facial palsy: Normal symetrical movement Left arm drift: No drift for full 10 sec Right arm drift: No drift for full 10 sec Left leg drift: No drift for full 5 sec Right leg drift: No drift for full 5 sec Limb ataxia: Absent Sensory on face/arms/legs: Normal, no sensory loss Best language: No aphasia, normal Dysarthria: Normal Extinction or inattention: No abnormality Total NIH Stroke scale score: 0 Course <HERMANN Charles-BC - Last Filed: 03/24/20 21:47> Orders Ordered: ED Orders 03/24/20 19:50 Lactate (Lactic Acid) Stat 03/24/20 20:25 Arterial Blood Gas Stat Discontinued Medications Bacitracin (Bacitracin) 1 applic TOP NOW ONE Stop: 03/24/20 19:26 Last Admin: 03/24/20 19:41 Dose: 1 applic Documented by: ELADIO Diphtheria/Tetanus/Acell Pertussis (Adacel) 0.5 ml IM .ONCE ONE Stop: 03/24/20 15:39 Last Admin: 03/24/20 17:04 Dose: 0.5 ml Documented by: ELADIO Sodium Chloride (Normal Saline 0.9%) 1,000 mls @ 1,000 mls/hr IV BOLUS ONE Stop: 03/24/20 17:16 Last Infusion: 03/24/20 17:48 Dose: 0 mls/hr Documented by: Admin: 03/24/20 16:28 Dose: 1,000 mls/hr Documented by: TORI Sodium Chloride (Normal Saline 0.9%) 1,000 mls @ 1,000 mls/hr IV BOLUS ONE Stop: 03/24/20 18:20 Last Infusion: 03/24/20 19:41 Dose: 0 mls/hr Documented by: Admin: 03/24/20 17:47 Dose: 1,000 mls/hr Documented by: ELADIO Lidocaine/Sodium Bicarbonate (Buffered Lidocaine 10 Ml Syr) 10 ml INJ NOW ONE Stop: 03/24/20 18:00 Last Admin: 03/24/20 19:12 Dose: 5.5 ml Documented by: ELADIO Vital Signs Vital signs: Vital Signs - 8 hr 03/24/20 18:00 03/24/20 18:30 03/24/20 19:00 Pulse Rate 58 L 59 L 65 Blood Pressure 129/69 140/67 Pulse Oximetry 92 94 85 L 03/24/20 19:30 03/24/20 19:31 03/24/20 20:00 Pulse Rate 62 62 57 L Blood Pressure 154/70 H Pulse Oximetry 88 L 88 L 92 03/24/20 20:30 Pulse Rate 63 Blood Pressure 136/81 Pulse Oximetry 93 <Rusty Samayoa MD - Last Filed: 03/25/20 02:01> Orders Ordered: ED Orders 03/24/20 19:50 Lactate (Lactic Acid) Stat 03/24/20 20:25 Arterial Blood Gas Stat Discontinued Medications Bacitracin (Bacitracin) 1 applic TOP NOW ONE Stop: 03/24/20 19:26 Last Admin: 03/24/20 19:41 Dose: 1 applic Documented by: ELADIO Diphtheria/Tetanus/Acell Pertussis (Adacel) 0.5 ml IM .ONCE ONE Stop: 03/24/20 15:39 Last Admin: 03/24/20 17:04 Dose: 0.5 ml Documented by: ELADIO Sodium Chloride (Normal Saline 0.9%) 1,000 mls @ 1,000 mls/hr IV BOLUS ONE Stop: 03/24/20 17:16 Last Infusion: 03/24/20 17:48 Dose: 0 mls/hr Documented by: Admin: 03/24/20 16:28 Dose: 1,000 mls/hr Documented by: TORI Sodium Chloride (Normal Saline 0.9%) 1,000 mls @ 1,000 mls/hr IV BOLUS ONE Stop: 03/24/20 18:20 Last Infusion: 03/24/20 19:41 Dose: 0 mls/hr Documented by: Admin: 03/24/20 17:47 Dose: 1,000 mls/hr Documented by: ELADIO Lidocaine/Sodium Bicarbonate (Buffered Lidocaine 10 Ml Syr) 10 ml INJ NOW ONE Stop: 03/24/20 18:00 Last Admin: 03/24/20 19:12 Dose: 5.5 ml Documented by: ELADIO Vital Signs Vital signs: Vital Signs - 8 hr 03/24/20 18:00 03/24/20 18:30 03/24/20 19:00 Pulse Rate 58 L 59 L 65 Blood Pressure 129/69 140/67 Pulse Oximetry 92 94 85 L 03/24/20 19:30 03/24/20 19:31 03/24/20 20:00 Pulse Rate 62 62 57 L Blood Pressure 154/70 H Pulse Oximetry 88 L 88 L 92 03/24/20 20:30 Pulse Rate 63 Blood Pressure 136/81 Pulse Oximetry 93 MDM - Fall <Tonja Suárez, HISTORY CARD CLERK- - Last Filed: 03/24/20 21:47> Lab Data Attestation: I reviewed the patient's lab results. Result diagrams: 03/24/20 15:41 03/24/20 15:41 Labs: Lab Results 03/24/20 03/24/20 03/24/20 Range/Units 15:41 15:41 15:41 WBC 7.5 (4.5-11.0) X10^3/uL RBC 4.66 (4.5-5.9) X10^6/uL Hgb 15.1 (13.5-17.5) g/dL Hct 45.5 (41-53) % MCV 97.7 (80-100) fL MCH 32.4 (26-34) PG MCHC 33.1 (30-36) % RDW 14.7 (11.6-14.8) % Plt Count 260 (150-400) X10^3/uL Neut % (Auto) 82.5 H (50-75) % Lymph % (Auto) 13.2 L (25-40) % Morrow % (Auto) 2.8 L (3-14) % Eos % (Auto) 0.6 L (2-4) % Baso % (Auto) 0.9 (0-2) % Neut # (Auto) 6200 (5777-4368) /uL Lymph # (Auto) 1000 L (9918-7391) /uL Morrow # (Auto) 200 (0-900) /uL Eos # (Auto) 0 (0-450) /uL Baso # (Auto) 100 (0-100) /uL PT 11.0 (10.1-12.7) SECONDS INR 1.0 (0.9-1.3) APTT 28 (26.4-36.2) SECONDS ABG pH (7.35-7.45) ABG pCO2 (35-45) mmHg ABG pO2 (80-100) mmHg ABG HCO3 (22-26) mmol/L ABG Total CO2 (21-31) mmol/L ABG O2 Saturation (95-100) % ABG Base Excess (-2-2) mmol/L FiO2 Sodium (137-145) mmol/L Potassium (3.4-5.1) mmol/L Chloride (98-107) mmol/L Carbon Dioxide (22-32) mmol/L BUN (9-20) mg/dL Creatinine (0.66-1.25) mg/dL Estimated GFR (>60) mL/min BUN/Creatinine Ratio (6-22) Glucose (80-110) mg/dL Lactate (0.7-2.1) mmol/L Calcium (8.4-10.2) mg/dL Total Bilirubin (0.2-1.3) mg/dL AST (17-59) IU/L ALT (<50) IU/L Alkaline Phosphatase (38-126) U/L Total Creatine Kinase (55-170) U/L CK-MB (CK-2) (<2.37) ng/mL CK-MB (CK-2) Rel Index (1.5-5.0) % Troponin I (0.01-0.034) ng/mL NT-Pro-B Natriuret Pep (<450) pg/mL Total Protein (6.3-8.2) g/dL Albumin (3.5-5.0) g/dL Globulin (1.7-4.1) g/dL Albumin/Globulin Ratio (1.0-2.8) Procalcitonin < 0.05 (<0.5) ng/mL 03/24/20 03/24/20 03/24/20 Range/Units 15:41 15:41 15:47 WBC (4.5-11.0) X10^3/uL RBC (4.5-5.9) X10^6/uL Hgb (13.5-17.5) g/dL Hct (41-53) % MCV (80-100) fL MCH (26-34) PG MCHC (30-36) % RDW (11.6-14.8) % Plt Count (150-400) X10^3/uL Neut % (Auto) (50-75) % Lymph % (Auto) (25-40) % Morrow % (Auto) (3-14) % Eos % (Auto) (2-4) % Baso % (Auto) (0-2) % Neut # (Auto) (6476-9600) /uL Lymph # (Auto) (2418-8582) /uL Morrow # (Auto) (0-900) /uL Eos # (Auto) (0-450) /uL Baso # (Auto) (0-100) /uL PT (10.1-12.7) SECONDS INR (0.9-1.3) APTT (26.4-36.2) SECONDS ABG pH (7.35-7.45) ABG pCO2 (35-45) mmHg ABG pO2 (80-100) mmHg ABG HCO3 (22-26) mmol/L ABG Total CO2 (21-31) mmol/L ABG O2 Saturation (95-100) % ABG Base Excess (-2-2) mmol/L FiO2 Sodium 141 (137-145) mmol/L Potassium 5.0 (3.4-5.1) mmol/L Chloride 108 H (98-107) mmol/L Carbon Dioxide 23 (22-32) mmol/L BUN 26 H (9-20) mg/dL Creatinine 1.14 (0.66-1.25) mg/dL Estimated GFR > 60.0 (>60) mL/min BUN/Creatinine Ratio 22.8 H (6-22) Glucose 84 (80-110) mg/dL Lactate 3.3 H (0.7-2.1) mmol/L Calcium 9.2 (8.4-10.2) mg/dL Total Bilirubin 0.4 (0.2-1.3) mg/dL AST 31 (17-59) IU/L ALT 13 (<50) IU/L Alkaline Phosphatase 40 (38-126) U/L Total Creatine Kinase 266 H (55-170) U/L CK-MB (CK-2) 2.36 (<2.37) ng/mL CK-MB (CK-2) Rel Index 0.9 L (1.5-5.0) % Troponin I < 0.012 (0.01-0.034) ng/mL NT-Pro-B Natriuret Pep 405 (<450) pg/mL Total Protein 7.2 (6.3-8.2) g/dL Albumin 4.0 (3.5-5.0) g/dL Globulin 3.2 (1.7-4.1) g/dL Albumin/Globulin Ratio 1.3 (1.0-2.8) Procalcitonin (<0.5) ng/mL 03/24/20 03/24/20 03/24/20 Range/Units 18:17 19:50 20:25 WBC (4.5-11.0) X10^3/uL RBC (4.5-5.9) X10^6/uL Hgb (13.5-17.5) g/dL Hct (41-53) % MCV (80-100) fL MCH (26-34) PG MCHC (30-36) % RDW (11.6-14.8) % Plt Count (150-400) X10^3/uL Neut % (Auto) (50-75) % Lymph % (Auto) (25-40) % Morrow % (Auto) (3-14) % Eos % (Auto) (2-4) % Baso % (Auto) (0-2) % Neut # (Auto) (5225-0499) /uL Lymph # (Auto) (3245-7402) /uL Morrow # (Auto) (0-900) /uL Eos # (Auto) (0-450) /uL Baso # (Auto) (0-100) /uL PT (10.1-12.7) SECONDS INR (0.9-1.3) APTT (26.4-36.2) SECONDS ABG pH 7.35 (7.35-7.45) ABG pCO2 37.2 (35-45) mmHg ABG pO2 56 L (80-100) mmHg ABG HCO3 21 L (22-26) mmol/L ABG Total CO2 22 (21-31) mmol/L ABG O2 Saturation 88 L (95-100) % ABG Base Excess -5.0 L (-2-2) mmol/L FiO2 0.32 Sodium (137-145) mmol/L Potassium (3.4-5.1) mmol/L Chloride (98-107) mmol/L Carbon Dioxide (22-32) mmol/L BUN (9-20) mg/dL Creatinine (0.66-1.25) mg/dL Estimated GFR (>60) mL/min BUN/Creatinine Ratio (6-22) Glucose (80-110) mg/dL Lactate 2.3 H 2.3 H (0.7-2.1) mmol/L Calcium (8.4-10.2) mg/dL Total Bilirubin (0.2-1.3) mg/dL AST (17-59) IU/L ALT (<50) IU/L Alkaline Phosphatase (38-126) U/L Total Creatine Kinase (55-170) U/L CK-MB (CK-2) (<2.37) ng/mL CK-MB (CK-2) Rel Index (1.5-5.0) % Troponin I (0.01-0.034) ng/mL NT-Pro-B Natriuret Pep (<450) pg/mL Total Protein (6.3-8.2) g/dL Albumin (3.5-5.0) g/dL Globulin (1.7-4.1) g/dL Albumin/Globulin Ratio (1.0-2.8) Procalcitonin (<0.5) ng/mL Urine Dip Bedside Urine Glucose Negative Bedside Urine Bilirubin - Negative Bedside Urine Ketone - Negative Urine Specific Garnett 1.015 Bedside Urine Occult Blood - Negative Bedside Urine pH 5.5 Bedside Urine Protein - Negative Bedside Urine Urobilinogen - Negative Bedside Urine Nitrite - Negative Bedside Urine Leukocytes - Negative Esterase Imaging Data Chest x-ray: Radiologist's Impression: [address] [place] [id number] XRay Report Signed Patient: Lon HathawayMR#: [id number] : 6Acct:[id number] Age/Sex: 84 / MDate of Service: 03/24/20 Loc: ED Accession Number: [id number] Procedure: XR chest 1V Ordering Provider: Tonja Suárez PROCEDURE: XR CHEST 1V INDICATIONS: copd, shortness of breath TECHNIQUE: One view of the chest was acquired. COMPARISON: [facility], CT, CT CHEST WO CON, 10/25/2019, 11:09. [facility], CR, CHEST 1 VIEW, 05/22/2016, 11:36. [facility], CR, CHEST 2 VIEW, 09/04/2016, 14:11. FINDINGS: Surgical changes and devices: None. Lungs and pleura: The lungs are hyperexpanded. Diffuse interstitial prominence is seen. Blunting of the costophrenic angles can be seen. Mediastinum: Obscured. Bones and chest wall: Age-appropriate bony degenerative changes are seen. No suspicious bony lesions. Overlying soft tissues appear unremarkable. IMPRESSION: Diffuse interstitial prominence is seen. A small amount of pulmonary edema is suspected upon a baseline of underlying pulmonary fibrosis. Blunting of the costophrenic angles is seen, which is attributed to scarring, although differential diagnosis includes small pleural effusions. Dictated by: Mariusz Rebolledo M.D. on 03/24/2020 at 16:18 Approved by: Mariusz Rebolledo M.D. on 03/24/2020 at 16:19 CT scan - head: Radiologist's Impression: [address] [place] [address] CT Scan Report Signed Patient: Lon HathawayMR#: [id number] : 6Acct:[id number] Age/Sex: 84 / MDate of Service: 03/24/20 Loc: ED Accession Number: [id number] Procedure: CT head/brain wo con Ordering Provider: Tonja Suárez PROCEDURE: CT HEAD/BRAIN WO CON INDICATIONS: glf hit head TECHNIQUE: Noncontrast 4.5 mm thick angled axial sections acquired from the foramen magnum to the vertex, with coronal and sagittal reformats. For radiation dose reduction, the following was used: automated exposure control, adjustment of mA and/or kV according to patient size. COMPARISON: [facility], CT, CT CERVICAL SPINE WO CON, 03/24/2020, 15:43. [facility], CT, HEAD WITHOUT CONTRAST, 05/30/2013, 9:15. FINDINGS: Image quality: Excellent. CSF spaces: Basal cisterns are patent. No extra-axial fluid collections. The ventricles are symmetric in size and shape. Brain: No intracranial bleeds or masses. There is cerebral volume loss for age, with resultant ventricular and sulcal prominence. There are periventricular and deep white matter chronic small vessel ischemic changes. There is intracranial internal carotid artery atherosclerosis. Skull and face: Calvarium and visualized facial bones appear intact, without suspicious lesions. Sinuses: Visualized sinuses and mastoids are clear. IMPRESSION: No acute intracranial hemorrhage is seen. Relatively prominent brain parenchymal volume loss is again seen. Dictated by: Mariusz Rebolledo M.D. on 03/24/2020 at 15:10 Approved by: Mariusz Rebolledo M.D. on 03/24/2020 at 15:11 Extremity x-ray #1: Radiologist's Impression: [address] [place] [id number] XRay Report Signed Patient: Lon HathawayMR#: [id number] : 6At:[id number] Age/Sex: 84 / MDate of Service: 03/24/20 Loc: ED Accession Number: [id number] Procedure: XR elbow RT min 3V Ordering Provider: Tonja Suárez PROCEDURE: XR ELBOW RT MIN 3V INDICATIONS: Ground level fall, pain, wound TECHNIQUE: 3 views of the elbow were acquired. COMPARISON: None. FINDINGS: Bones: Rotated exam which limits evaluation. No evidence of fracture. No fractures or dislocations. No suspicious bony lesions. Soft tissues: No elbow joint effusion. No suspicious soft tissue calcifications. IMPRESSION: No definite evidence of fracture. Limited exam due to poor positioning. Dictated by: Kilo Arroyo M.D. on 03/24/2020 at 16:10 Approved by: Kilo Arroyo M.D. on 03/24/2020 at 16:11 CT - cervical spine: Radiologist's Impression: [address] [place] [address] [id number] [address] Scan Report Signed Patient: Lon HathawayMR#: [id number] : 6Acct:[id number] Age/Sex: 84 / MDate of Service: 03/24/20 Loc: ED Accession Number: [id number] Procedure: CT cervical spine wo con Ordering Provider: Tonja Suárez PROCEDURE: CT CERVICAL SPINE WO CON INDICATIONS: glf hit head, neck pain TECHNIQUE: Noncontrast 3 mm thick sections acquired from the skull base to the T4 level. Sagittal and coronal reformats were then constructed. For radiation dose reduction, the following was used: automated exposure control, adjustment of mA and/or kV according to patient size. COMPARISON: [facility], CT, CT HEAD/BRAIN WO CON, 03/24/2020, 15:43. [facility], CT, THORAX WITHOUT CONTRAST, 11/08/2015, 14:08. FINDINGS: Image quality: Diagnostic, with note made of motion artifact. Bones: No fractures or dislocations. Visualized superior ribs are intact. Degenerative changes are seen, with moderate to severe disc space narrowing at C4-C5 and C5-C6. At least moderate disc space narrowing is seen at C6-C7. At least partially bridging anterior osteophytes are seen C3 through T1. Postop directed endplate osteophytes are seen, which are most prominent at C4-C5 and at C5-C6. Focal degenerative changes are also seen involving the C1-C2 interface anteriorly. Soft tissues: Prevertebral soft tissues are normal in thickness. No paravertebral hematomas. No apical pneumothoraces. Emphysematous changes are seen at the lung apices. Atherosclerotic calcification is noted. IMPRESSION: No acute fracture is seen. Degenerative changes are seen, which are worst at the C4-C5 and C5-C6 levels. Emphysema. Dictated by: Mariusz Rebolledo M.D. on 03/24/2020 at 15:11 Approved by: Mariusz Rebolledo M.D. on 03/24/2020 at 15:13 ECG Data Attestation: I personally reviewed and interpreted this ECG as follows: Interpretation: Sinus rhythm with first-degree AV block. Ventricular rate 98. P.r. interval 219. QRS 156. viewed by Dr Mono CHO Narrative Medical decision making narrative: The patient is an 84-year-old male who presents with a chief complaint of ground level fall in a skin tear. He fell after his oxygen tank ran out when he did not know it. He does not know how long he was without home oxygen. Given concerns of , general malaise over the past few days, EKG was obtained, troponin is negative helping rule out any ACS involvement. The patient is noted to be acidotic, initially thought to be due to his episode of hypoxia for an unknown duration. He was given IV fluids and is lactate decreased to 2.3, turning down. The patient repeatedly requesting go home. He is at his baseline throughout his stay in the emergency department. His wound was closed as per procedural note. Given that the patient fell and hit his head at 84 years old, CT was obtained which had no acute findings. Elbow x-ray has no acute findings. Chest x-ray is no acute findings. C-spine CT has no acute findings. Repeat lactate was 2.3, so patient was given additional fluids and remained 2.3. I spoke with Dr. Samayoa, who suggested an ABG at this point time. The patient is expected be acidotic given his hypoxic episode, ABG to evaluate his current status. We reviewed his ABG, and decided that patient is not severely acidotic at this time in stable to go home. The patient repeatedly requested home, repeatedly stating he does not want to come into the hospital today. I did discuss at length the importance of strict follow-up with primary care provider as well as come back to the emergency department for any acute concerns such as concern of chest pain shortness of breath etcetera. Discussed patient at length with Dr. Samayoa, including lactate 2.3 upon discharge, ABG results, who states that patient is stable to go home if that is what he wants. Patient has no questions or concerns upon discharge and states understanding return precautions as well as follow-up care. Throughout his stay, the patient's oxygen saturation was difficult to monitor due to movement, lack of reading etcetera. On discharge the patient is 93% on his home oxygen. Patient have no questions or concerns upon discharge and state understanding of return precautions as well as follow-up care. <Rusty Samayoa MD - Last Filed: 03/25/20 02:01> Lab Data Labs: Lab Results 03/24/20 03/24/20 03/24/20 Range/Units 15:41 15:41 15:41 WBC 7.5 (4.5-11.0) X10^3/uL RBC 4.66 (4.5-5.9) X10^6/uL Hgb 15.1 (13.5-17.5) g/dL Hct 45.5 (41-53) % MCV 97.7 (80-100) fL MCH 32.4 (26-34) PG MCHC 33.1 (30-36) % RDW 14.7 (11.6-14.8) % Plt Count 260 (150-400) X10^3/uL Neut % (Auto) 82.5 H (50-75) % Lymph % (Auto) 13.2 L (25-40) % Morrow % (Auto) 2.8 L (3-14) % Eos % (Auto) 0.6 L (2-4) % Baso % (Auto) 0.9 (0-2) % Neut # (Auto) 6200 (2631-0968) /uL Lymph # (Auto) 1000 L (6185-1197) /uL Morrow # (Auto) 200 (0-900) /uL Eos # (Auto) 0 (0-450) /uL Baso # (Auto) 100 (0-100) /uL PT 11.0 (10.1-12.7) SECONDS INR 1.0 (0.9-1.3) APTT 28 (26.4-36.2) SECONDS ABG pH (7.35-7.45) ABG pCO2 (35-45) mmHg ABG pO2 (80-100) mmHg ABG HCO3 (22-26) mmol/L ABG Total CO2 (21-31) mmol/L ABG O2 Saturation (95-100) % ABG Base Excess (-2-2) mmol/L FiO2 Sodium (137-145) mmol/L Potassium (3.4-5.1) mmol/L Chloride (98-107) mmol/L Carbon Dioxide (22-32) mmol/L BUN (9-20) mg/dL Creatinine (0.66-1.25) mg/dL Estimated GFR (>60) mL/min BUN/Creatinine Ratio (6-22) Glucose (80-110) mg/dL Lactate (0.7-2.1) mmol/L Calcium (8.4-10.2) mg/dL Total Bilirubin (0.2-1.3) mg/dL AST (17-59) IU/L ALT (<50) IU/L Alkaline Phosphatase (38-126) U/L Total Creatine Kinase (55-170) U/L CK-MB (CK-2) (<2.37) ng/mL CK-MB (CK-2) Rel Index (1.5-5.0) % Troponin I (0.01-0.034) ng/mL NT-Pro-B Natriuret Pep (<450) pg/mL Total Protein (6.3-8.2) g/dL Albumin (3.5-5.0) g/dL Globulin (1.7-4.1) g/dL Albumin/Globulin Ratio (1.0-2.8) Procalcitonin < 0.05 (<0.5) ng/mL 03/24/20 03/24/20 03/24/20 Range/Units 15:41 15:41 15:47 WBC (4.5-11.0) X10^3/uL RBC (4.5-5.9) X10^6/uL Hgb (13.5-17.5) g/dL Hct (41-53) % MCV (80-100) fL MCH (26-34) PG MCHC (30-36) % RDW (11.6-14.8) % Plt Count (150-400) X10^3/uL Neut % (Auto) (50-75) % Lymph % (Auto) (25-40) % Morrow % (Auto) (3-14) % Eos % (Auto) (2-4) % Baso % (Auto) (0-2) % Neut # (Auto) (1563-1862) /uL Lymph # (Auto) (6442-1522) /uL Morrow # (Auto) (0-900) /uL Eos # (Auto) (0-450) /uL Baso # (Auto) (0-100) /uL PT (10.1-12.7) SECONDS INR (0.9-1.3) APTT (26.4-36.2) SECONDS ABG pH (7.35-7.45) ABG pCO2 (35-45) mmHg ABG pO2 (80-100) mmHg ABG HCO3 (22-26) mmol/L ABG Total CO2 (21-31) mmol/L ABG O2 Saturation (95-100) % ABG Base Excess (-2-2) mmol/L FiO2 Sodium 141 (137-145) mmol/L Potassium 5.0 (3.4-5.1) mmol/L Chloride 108 H (98-107) mmol/L Carbon Dioxide 23 (22-32) mmol/L BUN 26 H (9-20) mg/dL Creatinine 1.14 (0.66-1.25) mg/dL Estimated GFR > 60.0 (>60) mL/min BUN/Creatinine Ratio 22.8 H (6-22) Glucose 84 (80-110) mg/dL Lactate 3.3 H (0.7-2.1) mmol/L Calcium 9.2 (8.4-10.2) mg/dL Total Bilirubin 0.4 (0.2-1.3) mg/dL AST 31 (17-59) IU/L ALT 13 (<50) IU/L Alkaline Phosphatase 40 (38-126) U/L Total Creatine Kinase 266 H (55-170) U/L CK-MB (CK-2) 2.36 (<2.37) ng/mL CK-MB (CK-2) Rel Index 0.9 L (1.5-5.0) % Troponin I < 0.012 (0.01-0.034) ng/mL NT-Pro-B Natriuret Pep 405 (<450) pg/mL Total Protein 7.2 (6.3-8.2) g/dL Albumin 4.0 (3.5-5.0) g/dL Globulin 3.2 (1.7-4.1) g/dL Albumin/Globulin Ratio 1.3 (1.0-2.8) Procalcitonin (<0.5) ng/mL 03/24/20 03/24/20 03/24/20 Range/Units 18:17 19:50 20:25 WBC (4.5-11.0) X10^3/uL RBC (4.5-5.9) X10^6/uL Hgb (13.5-17.5) g/dL Hct (41-53) % MCV (80-100) fL MCH (26-34) PG MCHC (30-36) % RDW (11.6-14.8) % Plt Count (150-400) X10^3/uL Neut % (Auto) (50-75) % Lymph % (Auto) (25-40) % Morrow % (Auto) (3-14) % Eos % (Auto) (2-4) % Baso % (Auto) (0-2) % Neut # (Auto) (8418-5160) /uL Lymph # (Auto) (3276-3971) /uL Morrow # (Auto) (0-900) /uL Eos # (Auto) (0-450) /uL Baso # (Auto) (0-100) /uL PT (10.1-12.7) SECONDS INR (0.9-1.3) APTT (26.4-36.2) SECONDS ABG pH 7.35 (7.35-7.45) ABG pCO2 37.2 (35-45) mmHg ABG pO2 56 L (80-100) mmHg ABG HCO3 21 L (22-26) mmol/L ABG Total CO2 22 (21-31) mmol/L ABG O2 Saturation 88 L (95-100) % ABG Base Excess -5.0 L (-2-2) mmol/L FiO2 0.32 Sodium (137-145) mmol/L Potassium (3.4-5.1) mmol/L Chloride (98-107) mmol/L Carbon Dioxide (22-32) mmol/L BUN (9-20) mg/dL Creatinine (0.66-1.25) mg/dL Estimated GFR (>60) mL/min BUN/Creatinine Ratio (6-22) Glucose (80-110) mg/dL Lactate 2.3 H 2.3 H (0.7-2.1) mmol/L Calcium (8.4-10.2) mg/dL Total Bilirubin (0.2-1.3) mg/dL AST (17-59) IU/L ALT (<50) IU/L Alkaline Phosphatase (38-126) U/L Total Creatine Kinase (55-170) U/L CK-MB (CK-2) (<2.37) ng/mL CK-MB (CK-2) Rel Index (1.5-5.0) % Troponin I (0.01-0.034) ng/mL NT-Pro-B Natriuret Pep (<450) pg/mL Total Protein (6.3-8.2) g/dL Albumin (3.5-5.0) g/dL Globulin (1.7-4.1) g/dL Albumin/Globulin Ratio (1.0-2.8) Procalcitonin (<0.5) ng/mL Urine Dip Bedside Urine Glucose Negative Bedside Urine Bilirubin - Negative Bedside Urine Ketone - Negative Urine Specific Garnett 1.015 Bedside Urine Occult Blood - Negative Bedside Urine pH 5.5 Bedside Urine Protein - Negative Bedside Urine Urobilinogen - Negative Bedside Urine Nitrite - Negative Bedside Urine Leukocytes - Negative Esterase Discharge Plan Departure Patient Disposition: Home Clinical Impression: Laceration, Fall from ground level, Hypoxia Discharge Date/Time: 03/24/20 20:50 Instructions: Home Oxygen Therapy, DI for Laceration Repair, How to Prevent Falls, DI for Hypoxia Activity Restrictions/Additional Instructions: Thank you for trusting us with your care today. As discussed, please watch your oxygen tank and make sure that you are not running out of oxygen while using your home oxygen. Please follow up for suture removal in 7 days. Please monitor your laceration for signs and symptoms of infection including redness, purulent drainage etcetera Please come back to the emergency department for any acute concerns including concern of heart attack, stroke etcetera. Please follow-up with primary care provider the next 48-72 hours. Prescriptions: No Action tamsulosin [Flomax] 0.4 MG capsule,extended release 24hr 0.8 mg OR HS Qty: 0 RF: 0 potassium chloride [Klor-Con 8] 8 MEQ tablet extended release 10 meq OR Q DAY Qty: 0 RF: 0 furosemide 20 MG tablet 20 mg OR Q DAY Qty: 0 RF: 0 amoxicillin-pot clavulanate [Augmentin] 875 MG/125 MG tablet 1 tab OR BID Qty: 0 RF: 0 albuterol sulfate 2.5 MG/3 ML solution for nebulization 3 ml INH Q4HP PRNQty: 30 RF: 1 prednisone 10 MG tablet 40 mg PO QDAY Qty: 20 RF: 0 azithromycin [Zithromax] 250 MG tablet 250 mg PO SEE INSTRUCTIONS Qty: 6 RF: 0 prednisone 20 mg tablet 40 mg PO DAILY Qty: 20 RF: 0 albuterol sulfate 2.5 mg/0.5 mL solution for nebulization 2.5 mg INHALATION Q4-6H PRN (Reason: shortness of breath or wheezing) Qty: 30 RF: 0 Referrals: Victor M Reynolds MD [Primary Care Provider] - <Rusty Samayoa MD - Last Filed: 03/25/20 02:01> Cosign ED Attending Cosjasonature Attestation: I was immediately available in the department for consultation. This documentation has been reviewed and I agree with assessment and plan. Supervised by Rusty Samayoa MD
[2020-03-24] MEDS: LIDO 1%/SOD BICARB 8.4% (10ML) 10 ML SYRINGE INJ (19:12)
[2020-03-24] MEDS: BACITRACIN OINT 0.9 GM PCKT 1 APPLIC TOP (19:41)
[2020-03-24 20:10] LABS: Lactate (Lactic Acid) 2.3 mmol/L (0.7-2.1)
[2020-03-24 20:36] LABS: HCO3 ABG 21 mmol/L (22-26); Oxygen Saturation ABG 88 % (95-100); PCO2 ABG 37.2 mmHg (35-45); PO2 ABG 56 mmHg (80-100); TCO2 ABG 22 mmol/L (21-31); pH ABG 7.35 (7.35-7.45)
[2020-03-24 20:37] LABS: Fractionated Inspired Oxygen 0.32
[2020-03-24 21:57] LABS: Reflexed Lactate in 2 Hours Y
== END 2020-03-24 20:50 | disposition home or self-care (01) ==
PROVIDERS: Emergency Provider Nurse Practitioner Family; Family Provider Internal Medicine Critical Care Medicine; PCP Internal Medicine
DX: S41.111A Laceration without foreign body of right upper arm, initial encounter (principal); S09.90XA Unspecified injury of head, initial encounter; R09.02 Hypoxemia; M54.2 Cervicalgia; J44.9 Chronic obstructive pulmonary disease, unspecified; R06.02 Shortness of breath; W19.XXXA Unspecified fall, initial encounter; Z23 Encounter for immunization
CPT/HCPCS: 36415; 36600; 70450; 71045; 72125; 73080; 80053; 81003; 82550; 82553; 82805; 83605; 83880; 84145; 84484; 85025; 85610; 85730; 90471; 93005; 93010; 96360; 96361; 99285; 90715

== ENCOUNTER → 2020-07-25 11:07 | Outpatient (CLI) | payer MEDICARE, SELFPAY ==
--- NOTE | 2020-08-20 08:34 | P.HOLT.S_ITS ---
[employer] Report Referral & Results Date Patient Seen: 07/25/20 Requesting provider: Yesica Bucio Indication: Paroxysmal atrial fibrillation Duration of monitoring (days): 14 Diary information: There is 3 patient triggered events and 0 patient diary entries Patient triggered events were associated with (within 45 seconds) sinus rhythm and PACs Data: Minimum heart rate identified was 40 beats per minute at 06:09 on 07/30/2020 Maximum sinus heart rate was 118 beats per minute at 07:12 on 08/04/2020 Maximum overall heart rate was 214 beats per minute at 09:41 on 07/28/2020 during a 6 beat run of SVT Approximately 4.6% of identified beats were PACs which would rate them as occasional Less than 1% of identified beats were PVCs There 151 runs of SVT/atrial tachycardia the fastest being this 6 beat run as above with the longest lasting 25.8 seconds at a rate of 126 beats per minute which might suggest more atrial tachycardia than true SVT No atrial fibrillation was identified on this study Impression: Patient with occasional PACs and multiple very brief runs of SVT as above Clinical correlation suggested
== END ==
PROVIDERS: Family Provider Internal Medicine Critical Care Medicine; PCP Internal Medicine; Referring Provider Physician Assistant; Visit Provider Physician Assistant
DX: I48.0 Paroxysmal atrial fibrillation (principal)
CPT/HCPCS: 0298T; 93246; 93248

== ENCOUNTER → 2020-07-31 12:33 | Outpatient (CLI) | payer MEDICARE, SELFPAY ==
--- NOTE | 2020-07-31 | DI.US.S_ITS ---
PROCEDURE: US CAROTID DOPPLER BI INDICATIONS: Partial retinal artery occlusion, right eye TECHNIQUE: Color and pulse Doppler interrogation was performed of both carotid systems, with image documentation and velocity measurements. COMPARISON: [facility], , CAROTID ARTERY DOPPLER BILAT, 06/05/2011, 10:09. FINDINGS: Stenosis calculations are based on SRU (Society of Radiologists in Ultrasound) criteria. The flow velocities and the arterial waveforms are normal within both carotid arterial systems. Atherosclerotic plaque is seen on both sides. The estimated degree of internal carotid artery stenosis is less than 50%. Antegrade flow is confirmed within both vertebral arteries. IMPRESSION: No hemodynamically significant stenosis is seen. No significant change from the prior. Atherosclerotic plaque is noted bilaterally. Dictated by: Mariusz Rebolledo M.D. on 07/31/2020 at 14:16 Approved by: Mariusz Rebolledo M.D. on 07/31/2020 at 14:16
== END ==
PROVIDERS: Family Provider Internal Medicine Critical Care Medicine; PCP Internal Medicine; Referring Provider Physician Assistant; Visit Provider Physician Assistant
DX: I65.23 Occlusion and stenosis of bilateral carotid arteries (principal); H34.211 Partial retinal artery occlusion, right eye; E78.5 Hyperlipidemia, unspecified; R01.1 Cardiac murmur, unspecified; Z87.891 Personal history of nicotine dependence
CPT/HCPCS: 93880

== ENCOUNTER → 2020-08-23 07:50 | Outpatient (CLI) | payer MEDICARE, SELFPAY ==
--- NOTE | 2020-08-23 | DI.ECHO.S_ITS ---
[facility] +---------+ [facility] +---------+ : : [address] : : : : [place] : : : : [id number] : : : : Phone: [phone] Echocardiogram Report + + :Name: RAMON PRABHAKAR Study Date: 08/23/2020 Height: 73 in : :[facility] : Weight: 170 lb : : Gender: Male BSA: 2.0 m2 : :: 1935 Age: 84 yrs BP: 145/82 mmHg: :Reason For Study: HISTORY OF NICOTINE DEPENDENCE : :Ordering Physician: : :ROXANA MARC P.A-C Performed By: Helena Montemayor : :Referring: SAMRA MARC : + + Interpretation Summary The left ventricle is normal in size and wall thickness. Left ventricular systolic function is low normal. The ejection fraction is estimated to be 50- 55%. LVEF has minimally reduced. There is a significant dyssynchronous contraction pattern, consistent with a conduction abnormality. Diastolic parameters suggest a relaxation abnormality of the left ventricle, consistent with probable normal filling pressures. The right ventricle is normal in size and function. Right ventricular systolic pressure is estimated to be 45 mmHg plus the clinically estimated CVP which cannot be estimated on this exam. The left atrium is mildly dilated. Right atrial size is normal. There is mild mitral regurgitation. There is moderate aortic stenosis. has not changed since prior study. The calculated aortic valve area is 1.2 cm2. There is mild aortic regurgitation. There is no other significant valvular heart disease. The aortic root is normal size. Procedure: A two-dimensional transthoracic echocardiogram with color flow and Doppler was performed. The study quality was technically adequate. Comparison is made with the echocardiogram of 04/27/2018. The heart rate ranged between 47-72 bpm during the study. Left Ventricle: The left ventricle is normal in size and wall thickness. Left ventricular systolic function is low normal. The ejection fraction is estimated to be 50-55%. There is a significant dyssynchronous contraction pattern, consistent with a conduction abnormality. Diastolic parameters suggest a relaxation abnormality of the left ventricle, consistent with probable normal filling pressures. Right Ventricle: The right ventricle is normal in size and function. Atria: The left atrium is mildly dilated. Right atrial size is normal. There is no Doppler evidence for an interatrial shunt. Mitral Valve: The mitral valve leaflets are slightly calcified. There is mild to moderate mitral annular calcification. There is mild mitral regurgitation. Aortic Valve: The aortic valve is mildly calcified. The aortic valve is trileaflet. There is moderate aortic stenosis. The peak aortic velocity is 2.6 m/sec. The aortic valve mean gradient is 16 mmHg. The calculated aortic valve area is 1.2 cm2. There is mild aortic regurgitation. Tricuspid Valve: The tricuspid valve is normal in structure and function. There is mild tricuspid regurgitation. Right ventricular systolic pressure is estimated to be 45 mmHg plus the clinically estimated CVP which cannot be estimated on this exam. Pulmonic Valve: The pulmonic valve is not well seen, but is grossly normal. There is mild pulmonic regurgitation. There is no other significant valvular heart disease. Great Vessels: The aortic root is normal size. The dimensions of the ascending aorta are normal. The inferior vena cava was not visualized. Pericardium/ Pleura There is no pericardial effusion. There is no pleural effusion. MMode/2D Measurements & Calculations LVIDd: 5.2 cm LVOT diam: 2.1 cm LVIDs: 2.9 cm Ao root diam: 3.2 cm FS: 44.8 % asc Aorta Diam: 3.5 cm EPSS: 0.41 cm Ao Arch Diam (Prox Trans): 2.9 cm IVSd: 1.1 cm LVPWd: 1.0 cm LV stevens. diameter/BSA (cm/m^2): 2.6 LV sys. diameter/BSA (cm/m^2): 1.4 LA A2 area: 24.0 cm2 RA long axis: 5.4 cm LA A4 area: 21.0 cm2 RA area: 19.5 cm2 LA length (vol): 5.5 cm RA vol: 59.9 ml LA vol: 77.2 ml RA : 29.8 ml/m2 LA vol index: 38.4 ml/m2 RVD1 (basal): 3.1 cm TAPSE: 2.0 cm Doppler Measurements & Calculations Ao V2 max: 264.2 cm/sec LVOT Max Tomás: 94.0 cm/sec Ao V2 mean: 188.7 cm/sec LV V1 max P.5 mmHg Ao max P.9 mmHg LV V1 VTI: 22.8 cm Ao mean P.9 mmHg SHANIA(I,D): 1.2 cm2 Ao V2 VTI: 63.2 cm SHANIA(V,D): 1.2 cm2 sev ratio: 0.36 SHANIA indexed to BSA (cm^2/m^2): 0.62 MV E max tomás: 78.4 cm/sec TR max tomás: 312.1 cm/sec MV A max tomás: 86.3 cm/sec TR max P.0 mmHg MV E/A: 0.91 PA V2 max: 59.9 cm/sec Med Peak E' Tomás: 4.5 cm/sec PA V2 mean: 34.8 cm/sec E/E' med: 17.5 PA mean P.57 mmHg Lat Peak E' Tomás: 7.1 cm/sec PA pr(Accel): 56.7 mmHg E/E' lat: 11.1 E/e' average: 14.3 MV dec time: 0.39 sec SV(LVOT): 78.2 ml Reading Physician:05:26 PM
== END ==
PROVIDERS: Family Provider Internal Medicine Critical Care Medicine; PCP Internal Medicine; Referring Provider Physician Assistant; Visit Provider Physician Assistant
DX: I08.3 Combined rheumatic disorders of mitral, aortic and tricuspid valves (principal); R01.1 Cardiac murmur, unspecified; E78.5 Hyperlipidemia, unspecified; H34.211 Partial retinal artery occlusion, right eye; Z87.891 Personal history of nicotine dependence
CPT/HCPCS: 93306